=== PATIENT | male | born 1940 | race Caucasian/White ===

== ENCOUNTER → 2017-08-31 | Outpatient (CLI) | payer OTHER | END | disposition home or self-care (01) | LOC: PCVCIMAG 10:14 | DX: I25.10 Atherosclerotic heart disease of native coronary artery without angina pectoris (principal); I37.1 Nonrheumatic pulmonary valve insufficiency | CPT/HCPCS: 93306 ==

== ENCOUNTER → 2018-04-13 | Outpatient (CLI) | payer MEDICARE, BC ==
--- NOTE | 2018-04-13 11:19 | PCVCIMAG ---
EXAM: NONINVASIVE ARTERIAL EXAMINATION OF BOTH LOWER EXTREMITIES INCLUDING PRE AND POST COLDWATER IMMERSION THERMAL MEASUREMENTS AND DOPPLER WAVEFORMS INDICATION: Peripheral Arterial Disease. Leg pain.: Cold sensitive changes in the feet. FINDINGS: At baseline arterial waveforms in the right foot are within normal limits. Mild blunting of the arterial waveforms in the left first and fourth digits. Following [place] immersion there is marked flattening of the arterial waveforms in all of the digits of the right and left foot which are slow to recover through 20 minutes. Thermal measurements in all of the digits decreased significantly following [place] immersion and remain significantly decreased through 10 minutes and begin to slowly recover by 15 to 20 minutes although not to the level of baseline. IMPRESSION: Considerable change in arterial waveforms in the digits of the feet following: cold water immersion consistent with temperature-induced vasospasm. Please correlate clinically. LOC:[id number]
--- NOTE | 2018-04-13 11:21 | PCVCIMAG ---
EXAM: BILATERAL LOWER EXTREMITY ARTERIAL DUPLEX INDICATION: Peripheral Arterial Disease. Leg pain. FINDINGS: Right Leg: Satisfactory arterial waveforms throughout the common/profunda/superficial femoral, popliteal, anterior tibial, peroneal, and posterior tibial arteries. No flow limiting stenosis seen. Left Leg: Satisfactory arterial waveforms throughout the common/profunda/superficial femoral, popliteal, anterior tibial, peroneal, and posterior tibial arteries. No flow limiting stenosis seen. IMPRESSION: No flow limiting stenosis in the right lower extremity. No flow limiting stenosis in the left lower extremity. LOC:[id number]
== END | disposition home or self-care (01) ==
LOC: PCVCIMAG 10:15
PROVIDERS: ATTEND Podiatrist Foot & Ankle Surgery
DX: I73.9 Peripheral vascular disease, unspecified (principal); I99.8 Other disorder of circulatory system; I10 Essential (primary) hypertension; I25.10 Atherosclerotic heart disease of native coronary artery without angina pectoris; M79.89 Other specified soft tissue disorders; M79.674 Pain in right toe(s)
CPT/HCPCS: 93924; 93925